=== PATIENT | male | born 1975 | race Caucasian/White ===

== ENCOUNTER 2019-11-03 06:27 | Day surgery (SDC) | payer MEDICARE ==
[~2019-11-03] VITALS: Ht 175.3 cm; Wt 112.5 kg
[2019-11-03 07:10] LABS: ANION GAP 19.5 mmol/L (8-16); CALCIUM 9.5 mg/dL (8.5-10.1); CARBON DIOXIDE 26.4 mmol/L (21.0-32.0); CREATININE - SERUM 9.1 mg/dL (0.6-1.3); POTASSIUM - SERUM 4.9 mmol/L (3.5-5.1)
[2019-11-03 07:21] LABS: BASOPHILS 0.2 % (0-2); EOSINOPHILS 2.8 % (0-7); HEMATOCRIT 35.8 % (42.0-54.0); HEMOGLOBIN 11.7 g/dL (13.5-17.5); IMMATURE GRANULOCYTES 0.2 % (0-5); LYMPHOCYTES 27.9 % (15-50); MCH 32.1 pg (26.0-34.0); MCHC 32.7 g/dL (31.0-37.0); MCV 98.4 fL (80.0-100.0); MEAN PLATELET VOLUME 10.5 fL (7.4-10.4); MONOCYTES 6.8 % (2-11); NEUTROPHILS 62.1 % (40-80); PLATELET COUNT 126 10x3/uL (130-400); RBC 3.64 10x6/uL (4.20-6.10); RDW 14.6 % (11.5-14.5); WBC 4.7 10x3/uL (4.8-10.8)
[2019-11-03 07:45] LABS: INR 1.09 (0.85-1.17); PROTIME 14.1 SECONDS (11.6-15.0)
[2019-11-03] MEDS ORDERED: METOPROLOL TART50 MG PO (08:03)
[2019-11-03] MEDS ORDERED: NORVASC5 MG PO (08:03)
[2019-11-03] MEDS ORDERED: MULTAQ400 MG PO (08:03)
[2019-11-03] MEDS ORDERED: KAYEXALATE15 G/60 ML PO (08:04)
[2019-11-03] MEDS ORDERED: RENVELA800 MG PO (08:05)
[2019-11-03 08:06] VITALS: BP 163/84; Ht 175.3 cm; Wt 112.5 kg
[2019-11-03] MEDS ORDERED: ULTRAM50 MG PO (10:10)
--- NOTE | 2019-11-03 11:49 | NUR ---
PERITONEAL CATHETER REF.#[id number]
--- NOTE | 2019-11-04 09:18 | OP ---
PATIENT NAME: ILEANA BALTAZAR JR MEDICAL RECORD: [id number] :75 LOCATION:[facility] ADMISSION DATE: SURGEON: MIHIR WYNNE MD DATE OF OPERATION: 11/03/2019 PREOPERATIVE DIAGNOSES: End-stage renal disease and dependence on renal dialysis. POSTOPERATIVE DIAGNOSES: End-stage renal disease and dependence on renal dialysis. REFERRING PHYSICIAN: Dr. Padron in [place]. OPERATION PERFORMED: Laparoscopic implantation of peritoneal dialysis catheter and laparoscopic omentopexy. SURGEON: Mihir Wynne MD ANESTHESIA: General endotracheal per CHAINSTITCH BINDER. PREOPERATIVE NOTE: Mr. Baltazar is a 44-year-old white male patient with end-stage renal disease, who wishes to resume peritoneal dialysis. He is obese with a very pendulous abdomen and on my initial physical examination, I detected a previously asymptomatic and undiagnosed right inguinal hernia. He is brought to the hospital today for laparoscopic implantation of a PD catheter and if confirmed, repair of hernia. DESCRIPTION OF PROCEDURE: Under general endotracheal anesthesia, the patient was placed in supine position and a Foss catheter inserted. The abdomen was then prepped and draped in a sterile manner. I used a stencil then to measure up from the symphysis pubis and decided on a site for the primary incision for the catheter. This was to the left of the midline and I marked an exit site further to the left at about the level of the umbilicus. I then accessed the peritoneal cavity with a 5-mm port through a small incision in the left upper quadrant. Initially inserted with a 0-degree 5-mm scope. This was changed to a 30-degree angle. Pneumoperitoneum was established with carbon dioxide and a second 5-mm port was placed in the left lower quadrant. The patient had a generous omentum in the pelvis and I felt that an omentopexy would be advisable and this was performed by using a Victoriano-Jerome suture passer through a small incision in the right upper quadrant to tack a generous flap of omentum, pulled up from the pelvis to the anterior abdominal wall with 0 Vicryl. I then made the incision on the left paramedian area and carried it down to the rectus sheath where I infiltrated then the rectus sheath and muscle with 0.25% Marcaine with epinephrine in hopes of achieving better hemostasis. A pursestring suture of 0 Vicryl was placed and a trocar introducer passed then through the anterior rectus sheath at an angle and observed with the laparoscope. This was passed within the rectus sheath and preperitoneal space considerably distally before penetrating the peritoneum above the symphysis pubis. A [facility]'s classic Flex-Neck adult large coil catheter was then inserted with little difficulty. The deeper cuff was inserted into the rectus muscle and the pursestring suture of 0 Vicryl was tied. The catheter was flushed with saline to be certain that the tie was not too tight, and the catheter was then OPERATIVE REPORT [id number] ILEANA BALTAZAR JR placed in a subcutaneous tunnel bringing it out through the previously identified exit site and leaving the superficial cuff 3 or 4 cm from the exit site. The catheter was connected to a liter of normal saline, which was then allowed to run into the abdomen and then the bag was placed on the floor and the fluid was allowed to siphon out and flow was brisk with good return. The catheter was then connected to a transverse set and capped. The laparoscopic instruments and ports were removed, and the wounds infiltrated with 0.25% Marcaine without epinephrine, and wound closure performed with interrupted inverted 3-0 Vicryl. Skin closure of the longer left paramedian incision was done with a running 4-0 Stratafix. The incisions were sealed and further closed with Dermabond glue and dressed with Maxorb Ag, Tegaderm, and Cavilon skin prep. The catheter at the exit site was dressed with a chlorhexidine Biopatch and a 4 x 4 Medipore adhesive border dressing. The patient's Foss catheter was removed. He was then awakened and extubated and taken to the recovery room in stable condition. Blood loss during the operation about 5 cc, was unreplaced. Sponges, instruments, and needles were all accounted for. No surgical specimen was submitted for histopathology. PLAN: The patient will go home today from the outpatient department and an appointment scheduled for him to return to see me in my office in about 2 weeks. He is not to shower or get the dressings or incisions wet. He should have his catheter flushed next week and probably after I see him in 2 or 3 weeks from now, he should be able to begin dialysis training. TRANSINT:[id number] Voice Confirmation ID: [id number] DOCUMENT ID: [id number] CC: [facility] Blackwell MD at 0918 CC: DIALYSIS RU and ANTHONY PADRON [phone] DICTATION DATE: 11/03/19 1023 LESSON INSTRUCTOR: 11/03/19 1408 DEP SD 11/03/19 [id number] [place] [address]
== END 2019-11-03 12:06 | disposition home or self-care (01) ==
LOC: D.OPS 06:27
PROVIDERS: Surgery; ATTEND Internal Medicine Nephrology
DX: N18.6 End stage renal disease (principal); Z99.2 Dependence on renal dialysis; K40.90 Unilateral inguinal hernia, without obstruction or gangrene, not specified as recurrent; E66.09 Other obesity due to excess calories; E03.9 Hypothyroidism, unspecified; I12.0 Hypertensive chronic kidney disease with stage 5 chronic kidney disease or end stage renal disease

== ENCOUNTER 2021-02-01 16:15 | Inpatient (IN) | payer MEDICARE ==
[~2021-02-01] VITALS: Ht 175.3 cm; Wt 103.8 kg
--- NOTE | ~2021-02-01 | HEMODYNAMI ---
PATIENT:ILEANA BALTAZAR JR MEDICAL RECORD: [id number] : 75 LOCATION:[facility] D230 ADMISSION DATE: 02/01/21 Generatedon:117:53 Patient name: ILEANA BALTAZAR Patient #: [id number] SSN: : [id number] Date of study: 02/05/2021 Page: Of Hemodynamic Procedure Report Patient Data Patient Demographics First Name: ILEANA Gender: Male Last Name: GIOVANNY Suffix: [facility] Initial: Ge : 1975 Patient #: [id number] Age: 46 year(s) Race: Unknown Additional ID: [id number] Contact details [address]: [address] [place] [id number] State: [place] City: [place] Zip code: [address] Past Medical History Allergies Allergen Reaction Date Comments Reported Penicillins 02/05/2021 Other allergy 02/05/2021 flu and pneumonia vaccines Admission Admission Data Admission Date: 02/01/2021 Admission Time: 23:01 Room #: [facility] Procedure Procedure Types Cath Procedure Peripheral Cath Diagnostic Procedure Venography Extremity Left Upper Ext. Venagram Procedure Description Procedure Date Procedure Date: 02/05/2021 Procedure Start Time: 15:28 Procedure Staff Name Function Ramiro Davis MD Performing Physician Melanie Kendrick RT Clinical Research Monitor Madeleine Duron RN Nurse Lesli Gordon RN Nurse SHOAIB YO RT Scrub Procedure Data Cath Procedure Fluoroscopy Diagnostic fluoroscopy Total fluoroscopy Time: time: 24.7 min 24.7 min Diagnostic fluoroscopy Total fluoroscopy dose: dose: 3398 mGy 3398 mGy Contrast Material Contrast Material Type Amount (ml) Isovue 300 120 Procedure Medications Medication Administration Route Dosage Lidocaine 1% added to field 20 Heparin Flush Bag added to field 2 bags (1000units/500ml NS) Benadryl I.V. 50 mg Fentanyl I.V. 25 mcg Fentanyl I.V. 25 mcg Fentanyl I.V. 50 mcg Heparin Bolus I.V. 5000 units Fentanyl I.V. 50 mcg Fentanyl I.V. 50 mcg Versed I.V. 1 mg Fentanyl I.V. 50 mcg Versed I.V. 1 mg Hemodynamics Rest Heart Rate: 61 (bpm) Snapshots Pre Cath Intra NCS Post Cath Vital Signs Time Heart Resp SPO2 etCO2 NIBP (mmHg) Rhythm Pain Sedation Rate (ipm) (%) (mmHg) Status Level (bpm) 15:16:12 61 24 92 27.7 140/96(116) NSR 0 (11) 10(A) , No pain 15:21:11 60 20 97 28.4 Measuring NSR 0 (11) 10(A) , No pain 15:22:35 61 20 96 28.4 Time NSR 0 (11) 10(A) Exceeded , No pain 15:26:53 59 20 95 28.4 132/77(105) NSR 0 (11) 10(A) , No pain 15:31:05 61 22 97 27 122/89(108) NSR 0 (11) 10(A) , No pain 15:35:54 63 19 94 20.9 142/68(118) NSR 0 (11) 8(A) , No pain 15:40:53 59 16 96 28.5 Measuring NSR 0 (11) 8(A) , No pain 15:40:57 59 16 96 28.5 139/113(132) NSR 0 (11) 8(A) , No pain 15:45:56 56 15 97 31.5 Measuring NSR 0 (11) 8(A) , No pain 15:47:18 58 17 96 27.7 Time NSR 0 (11) 8(A) Exceeded , No pain 15:50:39 59 19 98 29.9 No Cuff NSR 0 (11) 8(A) , No pain 15:52:17 58 16 98 32.2 146/61(139) NSR 0 (11) 8(A) , No pain 15:57:16 57 19 97 29.9 Measuring NSR 0 (11) 8(A) , No pain 15:58:40 55 14 97 32.9 Time NSR 0 (11) 8(A) Exceeded , No pain 16:00:14 57 15 98 31.4 104/84(101) NSR 0 (11) 8(A) , No pain 16:04:12 53 15 100 15.7 116/97(108) NSR 0 (11) 8(A) , No pain 16:08:24 54 16 98 30.7 128/65(81) NSR 0 (11) 8(A) , No pain 16:13:23 57 16 100 29.9 Measuring NSR 0 (11) 8(A) , No pain 16:14:47 54 18 99 29.9 Time NSR 0 (11) 8(A) Exceeded , No pain 16:16:17 55 18 100 29.9 105/60(78) NSR 0 (11) 8(A) , No pain 16:20:20 53 17 99 28.4 104/73(89) NSR 0 (11) 8(A) , No pain 16:25:19 54 17 100 17.9 124/82(105) NSR 0 (11) 8(A) , No pain 16:30:19 53 18 98 20.9 Measuring NSR 0 (11) 8(A) , No pain 16:31:43 53 16 99 19.4 Time NSR 0 (11) 8(A) Exceeded , No pain 16:34:35 54 19 100 23.2 130/91(123) NSR 0 (11) 8(A) , No pain 16:38:32 52 16 98 25.4 100/74(93) NSR 0 (11) 8(A) , No pain 16:43:23 54 18 96 30.7 95/71(85) NSR 0 (11) 8(A) , No pain 16:48:22 52 13 97 29.2 Measuring NSR 0 (11) 8(A) , No pain 16:49:30 52 13 99 18.7 Out of range NSR 0 (11) 8(A) , No pain 16:52:44 52 13 98 17.9 Time NSR 0 (11) 8(A) Exceeded , No pain 16:56:25 58 17 99 Time NSR 0 (11) 8(A) Exceeded , No pain 17:01:25 55 11 98 33.7 Measuring NSR 0 (11) 8(A) , No pain 17:01:30 55 11 99 33.7 Time NSR 0 (11) 8(A) Exceeded , No pain 17:04:39 57 13 99 29.9 146/129(143) NSR 0 (11) 8(A) , No pain 17:07:58 55 15 100 29.9 Time NSR 0 (11) 8(A) Exceeded , No pain 17:11:55 57 13 99 26.9 Time NSR 0 (11) 8(A) Exceeded , No pain 17:16:15 54 16 98 20.9 Disturbed NSR 0 (11) 8(A) , No pain 17:17:39 56 19 97 27.7 135/73(80) NSR 0 (11) 8(A) , No pain 17:21:39 53 16 99 25.4 No Cuff NSR 0 (11) 8(A) , No pain 17:23:36 54 16 98 25.4 161/92(122) NSR 0 (11) 8(A) , No pain 17:28:35 54 15 97 0 Measuring NSR 0 (11) 8(A) , No pain 17:29:59 53 15 98 11.2 Time NSR 0 (11) 8(A) Exceeded , No pain 17:34:07 56 16 99 29.9 129/62(115) NSR 0 (11) 8(A) , No pain 17:38:16 54 16 98 15.7 109/62(100) NSR 0 (11) 8(A) , No pain 17:42:12 55 17 99 20.2 120/96(113) NSR 0 (11) 8(A) , No pain 17:47:11 55 13 100 31.4 Measuring NSR 0 (11) 8(A) , No pain 17:48:29 58 17 99 31.4 Out of range NSR 0 (11) 8(A) , No pain 17:53:28 56 16 98 19.4 Measuring NSR 0 (11) 8(A) , No pain Medications Time Medication Route Dose Verified Delivered Reason Notes Effec tiveness by by 15:25:22 Lidocaine 1% added 20ml Ramiro Rubio used for to vial Susan Davis MD procedure field SHEPPARD 15:25:36 Heparin Flush added 2 Ramiro Rubio used for Bag to bags Susan Davis MD procedure (1000units/500ml field SHEPPARD NS) 15:31:26 Benadryl I.V. 50 mg Ramiro Ballesteros Per Evan Davis RN physician 15:32:30 Fentanyl I.V. 25 Ramiro Lesli Per mcg Evan Davis RN, MD 15:56:10 Fentanyl I.V. 25 Ramiro Lesli Per mcg Evan Davis RN, MD 16:15:03 Fentanyl I.V. 50 Ramiro Lesli Per mcg Evan Davis RN, MD 16:42:19 Heparin Bolus I.V. 5000 Ramiro Lesli units Evan Davis RN, MD 16:43:56 Fentanyl I.V. 50 Ramiro Lesli Per mcg Evan Davis RN, MD 16:57:26 Fentanyl I.V. 50 Ramiro Lesli Per mcg Evan Davis RN, MD 17:04:59 Versed I.V. 1 mg Ramiro Buchananody Per Evan Davis RN, MD 17:22:58 Fentanyl I.V. 50 Ramiro Lesli Per mcg Evan Davis RN, MD 17:23:05 Versed I.V. 1 mg Evan Hahn RN, MD Procedure Log Time Note 14:32:44 Use device set IR Diagnostic 14:41:48 Tegaderm 4 x 4 (1626W) opened to sterile field. 14:41:49 Sterile Angiographic Pack opened to sterile field. 14:41:50 Bag Decanter (2002S) opened to sterile field. 14:41:59 DOUBLE ENDED GUIEDWIRE DOC 145CM (J13720) opened to sterile field. 14:42:10 Micropuncture VSI 4FR kit opened to sterile field. 14:58:30 Time tracking: Regular hours (M-F 7:00 - 5:00) 15:08:37 Baseline sample Acquired. 15:15:17 Vital chart was started 15:19:57 Plan of Care:Hemodynamics will remain stable., Cardiac rhythm will remain stable., Comfort level will be maintained., Respiratory function will remain adequate., Patient/ family verbilizes understanding of procedure., Procedure tolerated without complication., Recovers from procedure without complications.. 15:20:03 H&P Date Dictated: 02/05/2021 Within 30 days and on chart.. 15:20:05 Pre-procedure instructions explained to patient. 15:20:05 Pre-op teaching completed and patient verbalized understanding. 15:20:07 Family unavailable. 15:20:11 Patient NPO since Lunch. 15:20:26 Patient allergic to Penicillins 15:21:43 Patient allergic to Other allergyflu and pneumonia vaccines 15:22:00 Is the patient allergic to Iodine/contrast media? No. 15:22:04 Is patient on blood thinner?Yes 15:22:21 Patient diabetic? No. 15:22:23 - 15:22:24 ----Pre-sedation anethsthesia assessment.---- 15:22:29 Previous problem with sedation/anesthesia? No ? 15:22:31 Snore? Yes 15:22:33 Sleep apnea? Yes 15:22:35 Deviated septum? No 15:22:37 Opens mouth fully? Yes 15:22:38 Sticks out tongue? Yes 15:22:48 Airway obstruction? Yes heart disease 15:22:52 Dentures? Yes ? 15:22:53 - 15:22:59 Right groin area was prepped with chlora-prep and draped in sterile fashion 15:23:23 Alarms reviewed by Marge Levine 15:23:33 - 15:23:47 5) <15 or on dialysis Very severe, or end stage kidney failure. 15:23:53 Fire Safety Assessment: A--An alcohol-based skin anteseptic being used preoperatively., C--Open oxygen or nitrous oxide is being used. 15:25:22 Lidocaine 1% 20ml vial added to field was administered by Ramiro Davis MD; used for procedure; Verbal order read back and verified. 15:25:36 Heparin Flush Bag (1000units/500ml NS) 2 bags added to field was administered by Ramiro Davis MD; used for procedure; Verbal order read back and verified. 15:: Physician arrived 15::28 --------ALL STOP TIME OUT------ 15::29 Final Timeout: patient, procedure, and site verified with staff and physician. All members of the team are in agreement. 15::06 Procedure started. 15:28:06 Full Disclosure recording started 15:28:13 Local anesthetic to right femoral vein with Lidocaine 1% by Ramiro Davis MD.INITIAL ACCESS ONLY 15:31:26 Benadryl 50 mg I.V. was administered by Lesli Gordon RN; Per physician ; Verbal order read back and verified. 15:32:30 Fentanyl 25 mcg I.V. was administered by Lesli Gordon RN; Per physician; Verbal order read back and verified. 15:37:51 AMPLATZ Super Stiff 75cm wire ([id number]) opened to sterile field. 15:38:04 GLIDE CATHETER 5FR ANGLED 65cm (CG507) opened to sterile field. 15:38:27 SHEATH 6FR Higdon (RQI272) opened to sterile field. 15:38:28 GLIDE WIRE ANGLE 260cm (GH2283) opened to sterile field. 15:40:34 SHEATH DESTINATION 6FR X 65CM (RSP01) opened to sterile field. 15:40:35 MCKEON 260 wire (R46823) opened to sterile field. 15:40:36 TORQUE DEVICE PLASTIC .038 ( TD01) opened to sterile field. 15:43:05 GLIDE CATHETER 5FR ANGLED 100cm (CG508) opened to sterile field. 15:48:25 ROADRUNNER .035 260 glide wire (M14449) opened to sterile field. 15:56:10 Fentanyl 25 mcg I.V. was administered by Lesli Gordon RN; Per physician; Verbal order read back and verified. 16:07:49 SHEATH 7FR Brite-Tip 23cm (171736S) opened to sterile field. 16:15:03 Fentanyl 50 mcg I.V. was administered by Lesli Gordon RN; Per physician; Verbal order read back and verified. 16:18:39 SNARE GOOSENECK 20MM LOOP 120C opened to sterile field. 16:33:28 CXI Catheter 90cm (B03019) opened to sterile field. 16:35:31 CXI SUPPORT .035 135 CM STR catheter (O09917) opened to sterile field. 16:42:19 Heparin Bolus 5000 units I.V. was administered by Lesli Gordon RN; ; Verbal order read back and verified. 16:43:56 Fentanyl 50 mcg I.V. was administered by Lesli Gordon RN; Per physician; Verbal order read back and verified. 16:45:46 SHEATH 7FR Destination (RSR04) opened to sterile field. 16:47:47 INFLATOR BasixTOUCH (ZQ1040) opened to sterile field. 16:49:43 Inflate balloon Inflation number: 1 A Evercross 6 x 8 x 135 Balloon ([id number]) was prepped and advanced across the Undefined1 , then inflated . 16:55:10 Inflate balloon Inflation number: 2 A Evercross 8 x 4 x 135 Balloon ([id number]) was prepped and advanced across the Undefined1 , then inflated . 16:57:26 Fentanyl 50 mcg I.V. was administered by Lesli Gordon RN; Per physician; Verbal order read back and verified. 16:59:40 Inflate balloon Inflation number: 3 A EVERCROSS 10 X 60 X 135 BALLOOON ([id number]) was prepped and advanced across the Undefined1 , then inflated. 17:04:59 Versed 1 mg I.V. was administered by Lesli Gordon RN; Per physician; Verbal order read back and verified. 17:09:29 Inflate balloon Inflation number: 4 A ATLAS 12 x 4 x 75CM balloon ([id number]) was prepped and advanced across the Undefined1 , then inflated . 17:15:46 Vital chart was stopped 17:15:53 Vital chart was started 17:15:57 Vital chart was stopped 17:16:28 Vital chart was started 17:22:21 St Deni 10FR 23CM sheath opened to sterile field. 17:22:58 Fentanyl 50 mcg I.V. was administered by Lesli Gordon RN; Per physician; Verbal order read back and verified. 17:23:05 Versed 1 mg I.V. was administered by Lesli Gordon RN; Per physician; Verbal order read back and verified. 17:35:50 a 12x40 lutonix balloon was used to dilate 17:43:19 Procedure ended.(Physican Out) 17:44:06 Fluoroscopy time 24.70 minutes. 17:44:13 Fluoroscopy dose: 3398 mGy 17:44:13 Flurop Dose total: 3398 17:49:53 Contrast amount:Isovue 300 120ml. 17:49:55 Procedure and supply charges have been captured, reviewed, submitted an d are correct. 17:53:05 Report given to ICU. 17:53:45 Vital chart was stopped Intervention Summary Intervention Notes Time ActionType Lesion and Equipment Used Action# Pressure Duration Attributes 16:49:43 Inflate Undefined1 Evercross 6 x 8 1 0 00:00 balloon x 135 Balloon ([id number]) 16:55:10 Inflate Undefined1 Evercross 8 x 4 2 0 00:00 balloon x 135 Balloon ([id number]) 16:59:40 Inflate Undefined1 EVERCROSS 10 X 3 0 00:00 balloon 60 X 135 BALLOOON ([id number]) 17:09:29 Inflate Undefined1 ATLAS 12 x 4 x 4 0 00:00 balloon 75CM balloon ([id number]) Device Usage Item Name Manufacture Quantity Catalog Number Hospital Part Current M inimal Lot# / Charge Number Stock Stock Serial# Code Tegaderm 4 x 4 3M 1 1626W [id number] [id number] 5 (1626W) Sterile Cardinal 1 [id number] 871622 146552 5 Angiographic Health Pack Bag Decanter Microtek 1 956258 32512 191125 5 () Medical Inc. DOUBLE ENDED Cook Medical 1 F54646 573759 379889 1 GUIEDWIRE DOC 145CM (V00919) Micropuncture VSI VASCULAR 1 7266V 270907 406759 5 VSI 4FR kit SOLUTIONS AMPLATZ Super [place] 1 [id number] 625818 530874 261550 5 Stiff 75cm wire Scientific ([id number]) GLIDE CATHETER Terumo 1 CG507 777366 227638 5 5FR ANGLED 65cm (CG507) SHEATH 6FR Terumo 1 IEO507 066197 238566 371998 4 0 Higdon (MLS321) GLIDE WIRE Terumo 1 FM3245 541693 761818 982374 5 ANGLE 260cm (NV2633) SHEATH Terumo 1 RSP01 517084 48674 290652 1 DESTINATION 6FR X 65CM (RSP01) MCKEON 260 wire Cook Medical 1 H25725 577755 810698 402570 5 (F19030) TORQUE DEVICE [place] 1 TD01 133022 367457 576580 5 PLASTIC .038 ( Scientific TD01) GLIDE CATHETER Terumo 1 CG508 616569 00366 316067 4 5FR ANGLED 100cm (CG508) ROADRUNNER .035 Cook Medical 1 I82452 222032 729702 674482 5 260 glide wire (S52464) SHEATH 7FR Cardinal 1 [id number] 729828 0343990 0 Brite-Tip 23cm Health (908271E) SNARE GOOSENECK Medtronic 1 QS6112 325232 846735 881442 5 20MM LOOP 120C CXI Catheter Cook Medical 1 G99710 840970 375516 681820 5 90cm (R20425) CXI SUPPORT Cook Medical 1 B62384 804661 028000 394987 5 .035 135 CM STR catheter (B73968) SHEATH 7FR Terumo 1 RSR04 413968 495767 401836 5 Destination (RSR04) INFLATOR Merit 1 BT6149 838064 780943 170259 5 Classiqs (FO2886) Evercross 6 x 8 Medtronic 1 [id number] 855955 782475 449568 5 x 135 Balloon ([id number]) Evercross 8 x 4 Medtronic 1 [id number] 583752 668982 609549 5 x 135 Balloon ([id number]) EVERCROSS 10 X Medtronic 1 [id number] 967520 074834 1 60 X 135 BALLOOON ([id number]) ATLAS 12 x 4 x Bard 1 FQ69613 959366 332273 5 75CM balloon (UX54434) St Deni 10FR St Deni 1 529881 154756 738516 5 23CM sheath Signature Audit [place] Stage Time Signature Unsigned Intra-Procedure 02/05/2021 Melanie Kendrick 5:53:43 PM RT(R) [facility] [address] [place] [address]
[~2021-02-01 16:15] MED LIST: KAYEXALATE15 G/60 ML PO; METOPROLOL TART50 MG PO; MULTAQ400 MG PO; NORVASC5 MG PO; RENVELA800 MG PO; ULTRAM50 MG PO
[2021-02-01 17:02] LABS: BASOPHILS 0.8 % (0-2); HEMATOCRIT 30.5 % (42.0-54.0); HEMOGLOBIN 10.2 g/dL (13.5-17.5); LYMPHOCYTES 16.4 % (15-50); MCH 32.6 pg (26.0-34.0); MCHC 33.5 g/dL (31.0-37.0); MCV 97.5 fL (80.0-100.0); MEAN PLATELET VOLUME 8.1 fL (7.4-10.4); MONOCYTES 6.4 % (2-11); NEUTROPHILS 73.4 % (40-80); RBC 3.13 10x6/uL (4.20-6.10); RDW 15.3 % (11.5-14.5); WBC 4.5 10x3/uL (4.8-10.8)
[2021-02-01 17:09] LABS: INR 1.13 (0.85-1.17); PROTIME 13.5 SECONDS (11.6-15.0)
[2021-02-01 17:10] LABS: ANION GAP 20.7 mmol/L (8-16); CARBON DIOXIDE 23.9 mmol/L (21.0-32.0); CREATININE - SERUM 12.1 mg/dL (0.6-1.3); POTASSIUM - SERUM 5.6 mmol/L (3.5-5.1)
[2021-02-01 17:11] LABS: PLATELET COUNT 161 10x3/uL (130-400)
[2021-02-01 17:16] LABS: ALBUMIN 3.6 g/dL (3.4-5.0); BILIRUBIN - TOTAL 0.43 mg/dL (0.2-1.3); MAGNESIUM - SERUM 2.4 mg/dL (1.8-2.4)
[2021-02-01 18:24] LABS: PRO BNP 11142 pg/mL (0-125); TROPONIN-I < 0.017 ng/mL (0.000-0.060)
--- NOTE | 2021-02-01 19:20 | NUR ---
PT REPORT GIVEN TO MAIA HARDY
[2021-02-01 19:33] VITALS: BP 172/87
[2021-02-01 22:25] VITALS: BP 190/90
--- NOTE | 2021-02-01 22:30 | NUR ---
PT STATES HE IS HAVING MORE DIFFICULTY BREATHING AND O2 SAT IS 90% ON 4LPM VIA NC. CONTACTED DR. CARRASQUILLO. ORDERS OBTAINED TO TRITRATE NITRO DRIP AND BIPAP.
[2021-02-01 23:30] VITALS: BP 180/91
[2021-02-02] VITALS (21 sets, daily range): BP systolic 114–188; BP diastolic 63–95
[2021-02-02 07:28] LABS: BASOPHILS 0.9 % (0-2); EOSINOPHILS 1.7 % (0-7); HEMATOCRIT 29.9 % (42.0-54.0); HEMOGLOBIN 10.1 g/dL (13.5-17.5); LYMPHOCYTES 13.4 % (15-50); MCH 32.8 pg (26.0-34.0); MCHC 33.8 g/dL (31.0-37.0); MEAN PLATELET VOLUME 7.9 fL (7.4-10.4); MONOCYTES 6.2 % (2-11); NEUTROPHILS 77.8 % (40-80); PLATELET COUNT 149 10x3/uL (130-400); RBC 3.08 10x6/uL (4.20-6.10); RDW 14.7 % (11.5-14.5); WBC 4.4 10x3/uL (4.8-10.8)
[2021-02-02 07:42] LABS: ALBUMIN 3.3 g/dL (3.4-5.0); BILIRUBIN - TOTAL 0.4 mg/dL (0.2-1.3); CALCIUM 9.9 mg/dL (8.5-10.1); CARBON DIOXIDE 22.9 mmol/L (21.0-32.0); CREATININE - SERUM 13.4 mg/dL (0.6-1.3); PROTEIN - SERUM 6.5 g/dL (6.4-8.2)
[2021-02-02 07:58] LABS: ANION GAP 23.8 mmol/L (8-16); POTASSIUM - SERUM 6.7 mmol/L (3.5-5.1)
--- NOTE | 2021-02-02 09:30 | NUR ---
DR. MENDENHALL HERE TO INSTERT VENOUS TRIALYSIS CATHETER.
--- NOTE | 2021-02-02 09:35 | NUR ---
MEDICATION FOR POTASSIUM LEVEL OF 6.7 GIVEN.
--- NOTE | 2021-02-02 10:20 | NUR ---
TRIALYSIS CATHETER PLACED TO LEFT GROIN BY DR. MENDENHALL. OK TO USE PER DR. MENDENHALL. DIALYSIS NOTIFIED.
--- NOTE | 2021-02-02 12:00 | NUR ---
BP 167/82. NITROGLYCERINE DRIP INCREASED TO 45MCG/MIN.
--- NOTE | 2021-02-02 13:15 | NUR ---
BP TRENDING DOWN DURING HEMODIALYSIS. NITROGLYCERINE TITRATED DOWN TO 30MCG/MIN.
--- NOTE | 2021-02-02 15:45 | NUR ---
SPO2 TRENDING IN THE UPPER 80S. O2 ON AT 2 L/M, INCREASED SP02 TO 96/97.
--- NOTE | 2021-02-02 16:25 | NUR ---
ON BED OVERTON. EXPELLED FORMED STOOL.
--- NOTE | 2021-02-02 17:40 | NUR ---
REPORT TO ANTONY PERALES, ICU.
[2021-02-02] MEDS ORDERED: ISOSORBIDE MONO30 M1 PO (18:15)
[2021-02-02] MEDS ORDERED: PLAVIX75 MG PO (18:15)
--- NOTE | 2021-02-02 18:15 | NUR ---
RECIEVED PT FROM THE ER WITH ER STAFF. PT PLACED ON ICU MONITORS. LT FEMORAL LINES DRESSED AND MEDS REVIEWED. WILL CONTINUE TO MONITOR.
[2021-02-02] MEDS ORDERED: SENSIPAR60 MG PO (18:16)
[2021-02-02] MEDS ORDERED: ROCALTROL0.5 MCG PO (18:16)
[2021-02-02] MEDS ORDERED: ASPIRIN81 MG PO (18:17)
[2021-02-03] VITALS (75 sets, daily range): BP systolic 119–182; BP diastolic 78–99; Ht 175.3 cm; Wt 103.8 kg
[2021-02-03 04:39] LABS: BASOPHILS 1.1 % (0-2); EOSINOPHILS 2.6 % (0-7); HEMATOCRIT 26.6 % (42.0-54.0); HEMOGLOBIN 8.8 g/dL (13.5-17.5); LYMPHOCYTES 17.4 % (15-50); MCH 32.2 pg (26.0-34.0); MCHC 33.3 g/dL (31.0-37.0); MCV 96.7 fL (80.0-100.0); MEAN PLATELET VOLUME 8.1 fL (7.4-10.4); MONOCYTES 9.3 % (2-11); NEUTROPHILS 69.6 % (40-80); PLATELET COUNT 126 10x3/uL (130-400); RBC 2.75 10x6/uL (4.20-6.10); RDW 14.5 % (11.5-14.5)
[2021-02-03 04:45] LABS: WBC 3.1 10x3/uL (4.8-10.8)
[2021-02-03 04:56] LABS: ANION GAP 18.6 mmol/L (8-16); CALCIUM 9.2 mg/dL (8.5-10.1); CARBON DIOXIDE 26.7 mmol/L (21.0-32.0); CREATININE - SERUM 12.1 mg/dL (0.6-1.3)
[2021-02-03 05:12] LABS: POTASSIUM - SERUM 6.3 mmol/L (3.5-5.1)
--- NOTE | 2021-02-03 07:10 | NUR ---
REPORT RECEIVED. DR WONG IN UNIT. ASKED TO GO ON AND GIVE PROCARDIA EARLY. WILL ATTEMPT TO WEAN NITRO DRIP. PT HAS LEFT GROIN TRIALYSIS AND A PIV IN HIS LEFT CHEST. HE IS A RIGHT ARM RESERVE. FISTULA CLOTTED IN RIGHT ARM. ASSESSMENT DONE. REFER TO FLOWSHEET.
--- NOTE | 2021-02-03 09:30 | NUR ---
PT BEING HOOKED UP FOR DIALYSIS.
--- NOTE | 2021-02-03 11:55 | NUR ---
PT HR UP TO 123 FROM RUNNING IN THE 50S WHILE ON DIALYSIS. SOME PVS SEEN. 12 LEAD EKG OBTAINED. TO CONSULT CARDIOLOGY.
--- NOTE | 2021-02-03 12:07 | NUR ---
SPOKE WITH JANUSZ DALLAS, FOR CARDIOLOGY CONSULT. ASKED TO GET ANOTHER EKG WHEN DIALYSIS IS COMPLETED AND THAT SHE WOULD SEE PT THIS AFTERNOON.
--- NOTE | 2021-02-03 12:22 | NUR ---
HR DOWN TO 64. P WAVES PRESENT WITH PVCS.
[2021-02-04] VITALS (55 sets, daily range): BP systolic 145–190; BP diastolic 77–116
[2021-02-04 04:47] LABS: BASOPHILS 0.7 % (0-2); HEMATOCRIT 26.8 % (42.0-54.0); LYMPHOCYTES 17.8 % (15-50); MCH 32.3 pg (26.0-34.0); MCHC 33.5 g/dL (31.0-37.0); MCV 96.3 fL (80.0-100.0); MEAN PLATELET VOLUME 7.9 fL (7.4-10.4); MONOCYTES 10.7 % (2-11); NEUTROPHILS 67.8 % (40-80); PLATELET COUNT 138 10x3/uL (130-400); RBC 2.78 10x6/uL (4.20-6.10); RDW 14.4 % (11.5-14.5); WBC 3.9 10x3/uL (4.8-10.8)
[2021-02-04 05:10] LABS: ANION GAP 16.2 mmol/L (8-16); CALCIUM 9.5 mg/dL (8.5-10.1); CARBON DIOXIDE 26.9 mmol/L (21.0-32.0); CREATININE - SERUM 10.1 mg/dL (0.6-1.3)
[2021-02-04 05:14] LABS: POTASSIUM - SERUM 5.1 mmol/L (3.5-5.1)
[2021-02-05] VITALS (19 sets, daily range): BP systolic 103–193; BP diastolic 55–104
[2021-02-05 04:48] LABS: EOSINOPHILS 2.2 % (0-7); HEMATOCRIT 27.2 % (42.0-54.0); HEMOGLOBIN 9.3 g/dL (13.5-17.5); LYMPHOCYTES 14.2 % (15-50); MCH 32.6 pg (26.0-34.0); MCHC 34.2 g/dL (31.0-37.0); MCV 95.2 fL (80.0-100.0); MEAN PLATELET VOLUME 7.7 fL (7.4-10.4); MONOCYTES 8.4 % (2-11); NEUTROPHILS 74.2 % (40-80); PLATELET COUNT 122 10x3/uL (130-400); RBC 2.86 10x6/uL (4.20-6.10); RDW 14.5 % (11.5-14.5); WBC 3.8 10x3/uL (4.8-10.8)
[2021-02-05 05:04] LABS: ANION GAP 20.7 mmol/L (8-16); CALCIUM 9.2 mg/dL (8.5-10.1); CARBON DIOXIDE 23.7 mmol/L (21.0-32.0); CREATININE - SERUM 11.8 mg/dL (0.6-1.3)
[2021-02-05 05:27] LABS: POTASSIUM - SERUM 6.4 mmol/L (3.5-5.1)
--- NOTE | 2021-02-05 07:10 | NUR ---
REPORT RECEIVED. PT ALERT AND ORIENTED. ON O2 AT 4L. PIV TO LEFT CHEST. HEMASPLIT TO LEFT GROIN. PT IS RESERVED RIGHT ARM. GETS DIALYSIS MWF. NO COMPLAINTS OR NEEDS AT THIS TIME.
--- NOTE | 2021-02-05 08:04 | NUR ---
Nutrition follow-up: Pt has been NPO for surgery Diet order: Renal with po intake 100%, 25% of last 2 meals More surgery scheduled labs reviewed; K: 6.4 with dialysis again today Wt: 229# Will continue to provide food choices and honor food preferences within diet restrictions. RDN will order Nepro nutritional supplement BID. RDN will follow-up on pts progress toward nutrition goals in 2-3 days.
--- NOTE | 2021-02-05 11:00 | NUR ---
PT DONE WITH DIALYSIS.
--- NOTE | 2021-02-05 19:00 | NUR ---
REPORT GIVEN BY DIAZRN
--- NOTE | 2021-02-05 19:45 | NUR ---
ASSESSMENT COMPLETED. ALERT AND ORIENTED. DIALYSIS WAS PERFORMED TODAY DUE TO THE FACT THAT HIS K+ WAS 6.4. THERE ARE TIMES WHEN BPS ARE ELEVATED. HE HAS PRN MEDS ORDERED WITH PARAMATERS. 4L O2 VIA NS. PT HAS A LEFT UPPER CHEST IV, A FEMORAL HEMOSPLIT AND A RIGHT FISTULA IN RIGHT ARM. USUALLY HAS DIALYSIS MWF IN [place], [place]. THE HOB IS ELEVATED AND HAS TELEMETRY. HE DOES HIS IS WELL WHEN ITS TIME. HE INDEPENDENTLY COUGHS, TURNS AND DEEP BREATHES.
--- NOTE | 2021-02-05 22:00 | NUR ---
PT IS ASLEEP WITH O2 ON. PT HAS NO IV FLUIDS RUNNING AT THIS TIME.
[2021-02-06] VITALS (11 sets, daily range): BP systolic 97–160; BP diastolic 45–89
[2021-02-06 00:03] LABS: SARS-CoV-2 ANTIGEN NEGATIVE- SARS-COV-2 (NEGATIVE)
--- NOTE | 2021-02-06 00:07 | NUR ---
STILL SLEEPING WITHOUT C/O.
[2021-02-06 03:37] LABS: BASOPHILS 1.1 % (0-2); EOSINOPHILS 2.8 % (0-7); HEMATOCRIT 27.4 % (42.0-54.0); HEMOGLOBIN 9.1 g/dL (13.5-17.5); LYMPHOCYTES 13.6 % (15-50); MCHC 33.4 g/dL (31.0-37.0); MCV 95.8 fL (80.0-100.0); MEAN PLATELET VOLUME 8.1 fL (7.4-10.4); MONOCYTES 8.4 % (2-11); NEUTROPHILS 74.1 % (40-80); PLATELET COUNT 122 10x3/uL (130-400); RBC 2.86 10x6/uL (4.20-6.10); RDW 14.1 % (11.5-14.5); WBC 3.8 10x3/uL (4.8-10.8)
[2021-02-06 03:47] LABS: ANION GAP 13.9 mmol/L (8-16); CALCIUM 9.2 mg/dL (8.5-10.1); CARBON DIOXIDE 29.3 mmol/L (21.0-32.0); CREATININE - SERUM 9.9 mg/dL (0.6-1.3)
--- NOTE | 2021-02-06 03:50 | NUR ---
PT HAS BEEN ASLEEP MOST OF THE NIGHT. HE'LL WAKE UP AND THEN GO RIGHT BACK TO SLEEP. HE DOES NOT C/O PAIN. I TOOK HIM A GLASS OF ICE EARLIER IN THE NIGHT. SIDE RAILS UP X2 AND CALL LIGHT IN HIS HAND.
[2021-02-06 04:48] LABS: POTASSIUM - SERUM 6.2 mmol/L (3.5-5.1)
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
--- NOTE | 2021-02-06 06:15 | NUR ---
PT HAS SLEPT MOST OF THE SHIFT. HE HAS NOT C/O OF PAIN. OVER THE COURSE OF THE 12 HOURS HE HAD 2 SMALL GLASSES OF ICE.
--- NOTE | 2021-02-06 19:56 | NUR ---
REPORT RECEIVED. PT A&O, RESTING IN BED. NO S/S OF DISTRESS OBSERVED. RR EVEN & UNLABORED ON 4L. DIALYSIS TODAY; 3L OFF. L GROIN HEMESPLIT SL. IV TO L CHEST SL. DIALYSIS DAYS MTW. R ARM RESERVED FOR R ARM FISTULA. BED LOCKED AND LOWERED, CL IN REACH. ASSESSMENT COMPLETE. WILL CONT POC.
[2021-02-07] VITALS: BP 146/96
--- NOTE | 2021-02-07 00:29 | NUR ---
PT C/O OF NOT FEELING WELL. SAYS HIS STOMACH DOESN'T FEEL WELL AND THAT HE JUST DOESN'T "FEEL RIGHT". PLACED PT ON TELE, ST 131. V/S 149/96, 130, 95%, R 16. WILL CONT POC.
--- NOTE | 2021-02-07 01:19 | NUR ---
TREATED TACHYCARDIA WITH PRN CLONODINE. PTS NOSE WAS BLEEDING FROM DRYING OUT OF 02; ADD HUMIDIFIER TO O2. WILL CONT POC.
[2021-02-07 03:12] VITALS: BP 139/87
[2021-02-07 05:21] LABS: BASOPHILS 0.9 % (0-2); EOSINOPHILS 1.1 % (0-7); HEMATOCRIT 28.2 % (42.0-54.0); HEMOGLOBIN 9.7 g/dL (13.5-17.5); LYMPHOCYTES 10.5 % (15-50); MCH 32.8 pg (26.0-34.0); MCHC 34.6 g/dL (31.0-37.0); MONOCYTES 9.9 % (2-11); NEUTROPHILS 77.6 % (40-80); PLATELET COUNT 123 10x3/uL (130-400); RBC 2.97 10x6/uL (4.20-6.10); RDW 14.1 % (11.5-14.5); WBC 4.5 10x3/uL (4.8-10.8)
[2021-02-07 05:44] LABS: ANION GAP 14.5 mmol/L (8-16); CALCIUM 9.6 mg/dL (8.5-10.1); CARBON DIOXIDE 29.4 mmol/L (21.0-32.0); CREATININE - SERUM 8.1 mg/dL (0.6-1.3)
[2021-02-07 05:53] LABS: POTASSIUM - SERUM 4.9 mmol/L (3.5-5.1)
--- NOTE | 2021-02-07 07:55 | NUR ---
AM ROUNDING DONE WITH PATIENT AROUSING EASILY. ON 4L WITH HUM WATER. LEFT CHEST PIV SEENW ITH SALINE LOCK AND ORANGE CAP. LEFT ABDOMINAL AREA WITH PD CATH SEEN AND DRY DRESSING. LEFT THIGH HEMISPLIT SEEN WITH DRY, INTACT DRESSING. RIGHT UPPER ARM DRESSING SEEN FROM RECENT SURGERY. LEFT ARM DRESSING SEEN, DRY AND INTACT. RESEVER RIGHT ARM. ON HEART MONITOR. PATIENT DENIES ANY NEEDS AT THIS TIME. CALL LIGHT IN USE.
--- NOTE | 2021-02-07 08:06 | NUR ---
PER DR WONG WE NEED TO STOP THE HEPARIN DRIP WHICH WAS STOPPED BUT NO ORDER FOR IT. DONE.
[2021-02-07 09:00] VITALS: BP 141/73
--- NOTE | 2021-02-07 10:08 | NUR ---
AM MEDS WHERE SCANNED AND GIVEN WITH CHLOE WITH DIETARY IN THE ROOM.
[2021-02-07 12:00] VITALS: BP 144/72
--- NOTE | 2021-02-07 12:31 | NUR ---
WORK ORDER PLACED THERE IS WATER ON THE FLOOR FROM THE AC UNIT.
--- NOTE | 2021-02-07 13:02 | NUR ---
Nutrition Reassessment: Pt reports vomiting after breakfast this AM. States that he has been eating well otherwise. Last BM on Sun or Mon but does not feel constipated. HD TTS. Diet: Renal No new wt; last wt: 228.9# (02/03) Labs noted: K+ 4.9, BUN 48, Cre 8.1, GFR 8, Glu 113 Meds noted: Veltassa, Protonix -Nutrition needs, Dx, & goals unchanged since initial assessment. -Encourage PO intake and honor food preferences within diet restrictions. -Offer Nepro with meals. -Monitor wt. -RD will follow up within 3-5 days.
--- NOTE | 2021-02-07 19:30 | NUR ---
PT IN BED, AAO X 4, RESP EVEN AND UNLABORED, NO DISTRESS NOTED, CL IN REACH, SR UP X 2.
[2021-02-07 20:59] VITALS: BP 140/63
[2021-02-08 01:58] VITALS: BP 158/80
[2021-02-08 05:02] VITALS: BP 137/65
--- NOTE | 2021-02-08 07:40 | NUR ---
AM ROUNDING DONE WITH PATIENT STILL HAVING A LITTLE HEARTBURN, STATES THAT IT IS BETTER THAN LAST NIGHT. ON ROOM AIR. LEFT CHEST PIV SALINE LOCK SEEN WITH ORANGE CAP INTACT. OLD LEFT AVF CLOTTED WITH DRY DRESSING. RIGHT AVF WITH WEAK + BRUIT, NO THRILL. LEFT PD CATH SEEN WITH DRY DRESSING. LEFT THIGH HEMISPLIT WITH DRY, INTACT DRESSING. UP AD KINDRA. ON HEART MONITOR SHOWING SB, HR 56. CALL LIGHT IS IN USE.
[2021-02-08 08:06] VITALS: BP 133/64
--- NOTE | 2021-02-08 09:40 | MORECARE ---
CASE MANAGEMENT DISCHARGE SUMMARY PATIENT: ILEANA BALTAZAR UNIT: [id number] ADM DATE: 02/01/21 AGE: 46 : 75 SEX: M ROOM/BED: D[facility] AUTHOR: MICHAELA,DOC PHYSICIAN: REFERRING PHYSICIAN: RONNY CLEARY MD DATE OF SERVICE: 02/08/21 Case Management Discharge Planning Summary DCP REVIEW SUMMARY ANTICIPATED D/C DATE: 02/08/2021 EXPECTED LOS : 7 CASE STATUS: DCP Initiated INITIAL REVIEW: 02/01/2021 INITIAL REVIEWER: Nayan Mohan FINAL DISCHARGE DISPOSITION: : FINAL REVIEWER: FINAL REVIEW DATE: DCP Focus Questions & Answers QUESTION: ANSWER : PATIENT: ILEANA BALTAZAR ENCOUNTER: [id number] MEDICAL RECORD#: [id number] ADMISSION DATE: 02/01/2021 DISCHARGE DATE: ATTENDING MD: : AGE: 46 MARITAL STATUS: M DC PLAN ID: [id number] FACILITY: [facility] PRINTED ON: 02/08/21 9:40 CT All edits/amendments must be made on the electronic document DICTATION DATE: 02/08/21939 TILE EDGER: DM 02/08/21939 RPT#: [id number] DC DATE: STATUS: ADM IN [facility] [address] [place] [address] END OF REPORT
--- NOTE | 2021-02-08 09:51 | MORECARE ---
CASE MANAGEMENT DISCHARGE SUMMARY PATIENT: ILEANA BALTAZAR JR UNIT: [id number] ADM DATE: 02/01/21 AGE: 46 : 75 SEX: M ROOM/BED: D.2137 AUTHOR: RODRIGO JENNINGS PHYSICIAN: REFERRING PHYSICIAN: RONNY CLEARY MD DATE OF SERVICE: 02/08/21 Case Management Discharge Planning Summary COMMENTS ENTERED DATE: 02/08/21 9:41 CT COMMENT TYPE: Discharge Planning REVIEWER: Nayan Mohan CM met with patient to complete DC plan and to evaluate needs. Patient lives independently with his spouse, Jonna Baltazar, . Patient stated that his home is safe and has electricity and running water. Patient stated that the home has 3 steps to enter and he is able to manage the steps without difficulty. Patient stated that he has no problems paying for medications and he fills his medications at [facility] in [place], [place]. Patient stated that his primary care physician is Dr. Pollack in [place], [place]. At discharge, the patient plans to return home and feels this is a safe discharge. CM discussed availability of home health, rehab services, and medical equipment. Patient declined HHS, SNF, IPR, and DME. Patient stated that he has no mobility problems and has family to help should he need care. Patient voiced no other needs at this time and is satisfied with DC plan. Transportation provider at discharge will be with his son. DC IMM delivered, explained, signed by the patient, and placed in chart. Signed form also left with the patient. CM will continue to follow and will assist as needed with dc plans/needs. DCP REVIEW SUMMARY ANTICIPATED D/C DATE: 02/08/2021 EXPECTED LOS : 7 CASE STATUS: DCP Initiated INITIAL REVIEW: 02/01/2021 INITIAL REVIEWER: Nayan Mohan FINAL DISCHARGE DISPOSITION: : FINAL REVIEWER: FINAL REVIEW DATE: DCP Focus Questions & Answers DCP Evaluation QUESTION: ANSWER Patient gives permission to discuss discharge plans with: (name, relationship and number) : spouse, Jonna Baltazar, Patient's ability to cope with chronic illness : d. No chronic illness Patient's current cognitive status: : *Oriented to person, place, situation, time and present Family / Caregiver's ability to cope with chronic illness: : a. Adequate (ability to meet patient's medical needs, ensures patient attends medical appts.) Patient and/or caregiver agree upon recommended discharge plan? : Yes Physical Status: : Independent with ADL's Family / Caregiver's ability to cope with chronic illness: : a. Adequate (ability to meet patient's medical needs, ensures patient attends medical appts.) Functional screen assessment: : Basic needs can adequately be met by self Does the patient have the ability to pay for or attain post discharge needs / services? : Yes Living Arrangements: : Home with Spouse/Significant Other Is there a likelihood that the patient will require additional services to return to the preadmission environment? : No Equipment needed for post hospitalization: : None Baseline cognitive status: : *Oriented to person, place, situation, time and present Patient with capacity for self-care or can be cared for in same environment as prior to hospitalization? : Yes Physical environment modification needed / anticipated for discharge: : No Medication Management: : Patient states can afford medications Medication Management: : Patient states can read and understand medication labels Pharmacy name(s): : [facility] in [place], [place] Does Patient have transportation to get home and to follow-up medical appointments when discharged from the hospital? : Yes Would patient like to participate in any Care Coordination programs (if applicable): : Not applicable Does the patient have electricity at home? : Yes Does the patient have running water in their house? : Yes Equipment in use: : None Mental health screen: : No mental health history DCP Re-evaluation QUESTION: ANSWER Would patient like to participate in any Care Coordination programs (if applicable): : Not applicable PATIENT: ILEANA BALTAZAR ENCOUNTER: [id number] MEDICAL RECORD#: [id number] ADMISSION DATE: 02/01/2021 DISCHARGE DATE: ATTENDING MD: MILDRED: AGE: 46 MARITAL STATUS: M DC PLAN ID: [id number] FACILITY: [facility] PRINTED ON: 02/08/21 9:51 CT All edits/amendments must be made on the electronic document DICTATION DATE: 02/08/21950 [employer] EXECUTIVE DIRECTOR: CEDRIC 02/08/21950 RPT#: [id number] DC DATE: STATUS: ADM IN [facility] [address] [place] [address] END OF REPORT
--- NOTE | 2021-02-08 10:43 | NUR ---
TO DIALYSIS VIA BED.
--- NOTE | 2021-02-08 14:28 | NUR ---
RETURNS FROM DIALYSIS.
--- NOTE | 2021-02-08 14:48 | NUR ---
LEFT HEMISPLIT THIGH DRESSING CHANGED USING STERILE TECHNIQUE. DATED. TOLERATED WELL. HEART MONITOR TURNED IN FOR DISCHARGE. PATIENT IS AWITING HIS RIDE FOR DISCHARGE.
--- NOTE | 2021-02-08 15:06 | NUR ---
VERBAL AND WRITTEN DISCHARGE INSTRUCTIONS GIVEN TO PATIENT AND SON. IV CATH REMOVED FROM LEFT CHEST. PRESSURE HELD IT WANTS TO BLEED EASILY FROM DIALYSIS AND PLAVIX.
== END 2021-02-08 16:08 | disposition home or self-care (01) | DRG 252 ==
LOC: D.ER 16:15 → D.EDHOLD 19:10 → OBSVTIME 19:10 → D.EDHOLD 23:01 → D.ICU 23:01 → D.M2 02-06 15:32
PROVIDERS: Family Medicine; Surgery; ADMIT Internal Medicine Nephrology; ATTEND Internal Medicine Nephrology
PROC: 06HN33Z Insertion of Infusion Device into Left Femoral Vein, Percutaneous Approach (ICD-10-PCS; principal; 2021-02-02)
PROC: B54CZZA Ultrasonography of Left Lower Extremity Veins, Guidance (ICD-10-PCS; 2021-02-02)
PROC: 5A1D70Z Performance of Urinary Filtration, Intermittent, Less than 6 Hours Per Day (ICD-10-PCS; 2021-02-03)
PROC: B51W1ZZ Fluoroscopy of Dialysis Shunt/Fistula using Low Osmolar Contrast (ICD-10-PCS; 2021-02-04)
PROC: 0JHM3XZ Insertion of Tunneled Vascular Access Device into Left Upper Leg Subcutaneous Tissue and Fascia, Percutaneous Approach (ICD-10-PCS; 2021-02-04)
PROC: 037 Upper Arteries, Dilation (ICD-10-PCS; 2021-02-05)
DX: T82.858A Stenosis of other vascular prosthetic devices, implants and grafts, initial encounter (principal); N18.6 End stage renal disease; I12.0 Hypertensive chronic kidney disease with stage 5 chronic kidney disease or end stage renal disease; I47.1 Supraventricular tachycardia; Y83.9 Surgical procedure, unspecified as the cause of abnormal reaction of the patient, or of later complication, without mention of misadventure at the time of the procedure; E87.5 Hyperkalemia; E11.65 Type 2 diabetes mellitus with hyperglycemia; E11.22 Type 2 diabetes mellitus with diabetic chronic kidney disease; Z99.2 Dependence on renal dialysis; Z86.73 Personal history of transient ischemic attack (TIA), and cerebral infarction without residual deficits; I16.0 Hypertensive urgency; D63.1 Anemia in chronic kidney disease

== ENCOUNTER 2021-02-14 10:54 | Day surgery (SDC) | payer MEDICARE ==
[~2021-02-14] VITALS: Ht 175.3 cm; Wt 101.8 kg
--- NOTE | ~2021-02-14 | HEMODYNAMI ---
PATIENT:ILEANA BALTAZAR JR MEDICAL RECORD: [id number] : 75 LOCATION:[facility] ADMISSION DATE: 02/14/21 Generatedon:116:07 Patient name: ILEANA BALTAZAR Patient #: [id number] SSN: : 1975 Date of study: 02/14/2021 Page: Of Hemodynamic Procedure Report Patient Data Patient Demographics Procedure consent was obtained First Name: ILEANA Gender: Male Last Name: GIOVANNY Suffix: [facility] Initial: Ge : 1975 Patient #: [id number] Age: 46 year(s) Race: Unknown Additional ID: [id number] Contact details [address]: [address] [place] [address] State: [place] City: [place] Zip code: [address] Past Medical History Allergies Allergen Reaction Date Comments Reported Penicillins 02/05/2021 Other allergy 02/05/2021 flu and pneumonia vaccines Penicillins 02/14/2021 Other allergy 02/14/2021 flu and pneumonia vaccines Admission Admission Data Admission Date: 02/14/2021 Admission Time: 10:54 Procedure Procedure Types Cath Procedure Peripheral Cath Diagnostic Procedure Abd/Extremity Extremities Right Upper Ext. Arteriogram Procedure Description Procedure Date Procedure Date: 02/14/2021 Procedure Start Time: 13:46 Procedure Staff Name Function Ramiro Davis MD Performing Physician Melanie Kendrick RT Honing Machine Operator Tool Lesli Gordon RN Nurse SHOAIB YO RT Scrub Skinny Kennedy Jr CONTROL ELECTRICIAN Additional personnel Garcia Carmona CONTROL ELECTRICIAN Additional personnel Procedure Data Cath Procedure Fluoroscopy Diagnostic fluoroscopy Total fluoroscopy Time: time: 28.1 min 28.1 min Diagnostic fluoroscopy Total fluoroscopy dose: dose: 2346 mGy 2346 mGy Procedure Medications Medication Administration Route Dosage Lidocaine 1% added to field 20 Heparin Flush Bag added to field 3 bags (1000units/500ml NS) Heparin Bolus I.V. 5000 units Hemodynamics Rest Pre Cath Intra NCS Post Cath Medications Time Medication Route Dose Verified Delivered Reason Notes Effecti veness by by 13:47:58 Lidocaine 1% added 20ml Ramiro Rubio to vial Susan Davis MD field MD 13:48:12 Heparin Flush added 3 Ramiro Rubio Bag to bags Susan Davis MD (1000units/500ml field SHEPPARD NS) 14:59:19 Heparin Bolus I.V. 5000 Ramiro Ballesteros units Evan Davis RN, MD Procedure Log Time Note 12:51:24 Use device set IR Diagnostic 12:52:41 SHEATH 5FR [place] (EDB778) opened to sterile field. 12:52:43 DOUBLE ENDED GUIEDWIRE DOC 145CM (R12733) opened to sterile field. 12:52:44 Micropuncture VSI 4FR kit opened to sterile field. 12:52:46 Tegaderm 4 x 4 (1626W) opened to sterile field. 12:52:49 Sterile Angiographic Pack opened to sterile field. 12:52:49 Bag Decanter (2002S) opened to sterile field. 12:52:50 ACIST Manifold (65291) opened to sterile field. 12:52:51 ACIST Hand Control (24680) opened to sterile field. 12:52:53 ACIST Syringe (91365) opened to sterile field. 12:53:06 - 13:10:19 Time tracking: Regular hours (M-F 7:00 - 5:00) 13:20:17 Plan of Care:Hemodynamics will remain stable., Cardiac rhythm will remain stable., Comfort level will be maintained., Respiratory function will remain adequate., Patient/ family verbilizes understanding of procedure., Procedure tolerated without complication., Recovers from procedure without complications.. 13:20:24 Patient received from Outpatients to IR Alert and oriented. Tansferred to table in Supine position. 13:20:26 Signed procedure consent form obtained from patient. 13:20:33 H&P Date Dictated: 02/14/2021 Emergent; H&P N/A, H&P Addendum completed by physician on day of procedure. (MUST COMPLETE FOR ALL OUTPATIENTS). 13:20:36 Pre-procedure instructions explained to patient. 13:20:36 Pre-op teaching completed and patient verbalized understanding. 13:20:39 Family in patients room. 13:20:42 Patient NPO since Midnight. 13:20:56 Patient allergic to Penicillins 13::07 Patient allergic to Other allergyflu and pneumonia vaccines 13:22:12 Is the patient allergic to Iodine/contrast media? No. 13:22:30 Patient diabetic? No. 13::35 ----Pre-sedation anethsthesia assessment.----SEE ANESTHESIA NOTES FOR MONITORING OF PATIENT DURING PROCEDURE 13:23:12 Right groin area was prepped with chlora-prep and draped in sterile fashion 13:23:20 Right Arm area was prepped with chlora-prep and draped in sterile fashion 13:23:27 - 13:23:35 5) <15 or on dialysis Very severe, or end stage kidney failure. 13:23:41 Fire Safety Assessment: A--An alcohol-based skin anteseptic being used preoperatively., C--Open oxygen or nitrous oxide is being used. 13:24:07 Sedation plan: General Anesthesia Medication:General Anesthesia 13:24:17 - 13:45:38 Physician arrived 13:45:39 --------ALL STOP TIME OUT------ 13:45:40 Final Timeout: patient, procedure, and site verified with staff and physician. All members of the team are in agreement. 13:46:04 Procedure started. 13:46:04 Full Disclosure recording started 13:46:11 Local anesthetic to right femoral vein with Lidocaine 1% by Ramiro Davis MD.INITIAL ACCESS ONLY 13:47:58 Lidocaine 1% 20ml vial added to field was administered by Ramiro Davis MD; ; Verbal order read back and verified. 13:48:12 Heparin Flush Bag (1000units/500ml NS) 3 bags added to field was administered by Ramiro Davis MD; ; Verbal order read back and verified. 13:52:42 Venous access obtained using ultrasound guidance. 13:57:07 GLIDE WIRE ANGLE 180cm (TS5375) opened to sterile field. 13:57:08 GLIDE CATHETER 5FR ANGLED 65cm (CG507) opened to sterile field. 13:57:23 TORQUE DEVICE PLASTIC .038 ( TD01) opened to sterile field. 13:59:14 ROADRUNNER .035 145 glide wire (V36750) opened to sterile field. 14:10:04 SHEATH 6FR [place] (AFT321) opened to sterile field. 14:14:09 GLIDE WIRE GOLD .018 (SW5075) opened to sterile field. 14:24:00 AMPLATZ Super Stiff 75cm wire ([id number]) opened to sterile field. 14:26:19 GLIDE CATHETER 5FR ANGLED 65cm (CG507) opened to sterile field. 14:30:18 SHEATH 6FR Destination (RSR01) opened to sterile field. 14:30:31 MCKEON 180cm wire (P68806) opened to sterile field. 14:39:19 SHEATH DESTINATION 6FR X 65CM (RSP01) opened to sterile field. 14:39:47 GLIDE CATHETER 5FR ANGLED 100cm (CG508) opened to sterile field. 14:49:02 TREASURE 12 300cm wire ([id number]) opened to sterile field. 14:52:32 MCKEON 260 wire (I66995) opened to sterile field. 14:58:58 INFLATOR BasixTOUCH (BT0703) opened to sterile field. 14:59:19 Heparin Bolus 5000 units I.V. was administered by Lesli Gordon RN; ; Verbal order read back and verified. 15:02:13 Inflate balloon Inflation number: 1 A Evercross 6 x 8 x 135 Balloon ([id number]) was prepped and advanced across the Undefined1 , then inflated . 15:06:45 Inflate balloon Inflation number: 2 A EVERCROSS 8 X 80 X 135 BALLOON ([id number]( was prepped and advanced across the Undefined1 , then inflated . 15:28:41 Inflate balloon Inflation number: 3 A Evercross 9 x 60 x 135 ([id number]) was prepped and advanced across the Undefined1 , then inflated. 15:29:07 Inflate balloon Inflation number: 4 A EVERCROSS 10 X 60 X 135 BALLOOON ([id number]) was prepped and advanced across the Undefined1 , then inflated . 15:50:03 A 12X60 ABRE VENOUS STENT PLACED LOT NUMBER-[id number] 15:51:13 Inflate balloon Inflation number: 5 A Evercross 10 x 40 x 135 Balloon ([id number]) was prepped and advanced across the Undefined1 , then inflated . 15:55:54 Procedure ended.(Physican Out) 15:56:23 Fluoroscopy time 28.10 minutes. 15:56:29 Fluoroscopy dose: 2346 mGy 15:56:29 Flurop Dose total: 2346 16:06:41 Procedure and supply charges have been captured, reviewed, submitted an d are correct. 16:06:54 Report given to Recovery Room. Intervention Summary Intervention Notes Time ActionType Lesion and Equipment Used Action# Pressure Duration Attributes 15:02:13 Inflate Undefined1 Evercross 6 x 8 1 0 00:00 balloon x 135 Balloon ([id number]) 15:06:45 Inflate Undefined1 EVERCROSS 8 X 2 0 00:00 balloon 80 X 135 BALLOON ([id number]( 15:28:41 Inflate Undefined1 Evercross 9 x 3 0 00:00 balloon 60 x 135 ([id number]) 15:29:07 Inflate Undefined1 EVERCROSS 10 X 4 0 00:00 balloon 60 X 135 BALLOOON ([id number]) 15:51:13 Inflate Undefined1 Evercross 10 x 5 0 00:00 balloon 40 x 135 Balloon ([id number]) Device Usage Item Name Manufacture Quantity Catalog Number Hospital Part Current Minimal Lot# / Charge Number Stock Stock Serial# Code SHEATH 5FR Terumo 1 [id number] 148593 767061 786668 5 [place] (WXT406) DOUBLE ENDED [facility] 1 R64612 838080 932525 1 GUIEDWIRE DOC 145CM (A68192) Micropuncture VSI VASCULAR 1 7266V 629195 953845 5 VSI 4FR kit SOLUTIONS Tegaderm 4 x 4 3M 1 1626W 785024 740062 578828 5 (1626W) Sterile Cardinal 1 [id number] 481012 910598 5 Angiographic Health Pack Bag Decanter Microtek 1 2001S 075636 30423 932586 5 () Medical Inc. ACIST Manifold Acist Medical 1 95981 223511 323412 359613 5 (62771) Systems Inc ACIST Hand Acist Medical 1 52171 933198 649152 153837 5 Control (73413) Systems Inc ACIST Syringe Acist Medical 1 25688 223618 184207 167486 20 (18692) Systems Inc GLIDE WIRE Terumo 1 QW1077 181343 257717 546679 5 ANGLE 180cm (UY0280) GLIDE CATHETER Terumo 1 CG507 522085 456305 5 5FR ANGLED 65cm (CG507) TORQUE DEVICE Woodbine 1 TD01 406120 741457 609491 5 PLASTIC .038 ( Scientific TD01) ROADRUNNER .035 Cook Medical 1 G38679 765044 137782 733390 5 145 glide wire (L26930) SHEATH 6FR Terumo 1 TNV424 419861 166965 351309 40 [place] (YLT384) GLIDE WIRE GOLD Terumo 1 PT4455 698236 932341 5 .018 (VY9806) AMPLATZ Super Woodbine 1 [id number] 596668 602943 450572 5 Stiff 75cm wire Scientific ([id number]) SHEATH 6FR Terumo 1 RSR01 819241 76524 359679 5 Destination (RSR01) MCKEON 180cm [employer] 1 H13382 147676 354576 5 wire (P26723) SHEATH Terumo 1 RSP01 399612 93692 979065 1 DESTINATION 6FR X 65CM (RSP01) GLIDE CATHETER Terumo 1 CG508 204740 64846 486712 4 5FR ANGLED 100cm (CG508) TREASURE 12 Cardiovascular 1 [id number] 340025 665010 459434 5 300cm wire systems ([id number]) MCKEON 260 wire [employer] 1 P74481 625044 176020 605769 5 (E08372) INFLATOR [facility] 1 DT5868 888238 860750 080790 5 BasixTOUCH (GV5673) Evercross 6 x 8 Medtronic 1 [id number] 576810 940404 571596 5 x 135 Balloon ([id number]) EVERCROSS 8 X Medtronic 1 [id number] 445032 970318 1 80 X 135 BALLOON ([id number]( Evercross 9 x Medtronic 1 [id number] 384510 411003 345133 5 60 x 135 ([id number]) EVERCROSS 10 X Medtronic 1 [id number] 324067 474070 1 60 X 135 BALLOOON ([id number]) Evercross 10 x Medtronic 1 [id number] 582958 401540 574467 5 40 x 135 Balloon ([id number]) Signature Audit [employer] Stage Time Signature Unsigned Intra-Procedure 02/14/2021 Melanie Kendrick 4:07:16 PM RT(R) [facility] [address] [place] [address]
[~2021-02-14 10:54] MED LIST changes: +ASPIRIN81 MG PO; +ISOSORBIDE MONO30 M1 PO; +PLAVIX75 MG PO; +ROCALTROL0.5 MCG PO; +SENSIPAR60 MG PO
[2021-02-14 11:28] LABS: BASOPHILS 1.6 % (0-2); EOSINOPHILS 3.5 % (0-7); HEMATOCRIT 29.6 % (42.0-54.0); LYMPHOCYTES 19.7 % (15-50); MCH 32.2 pg (26.0-34.0); MCHC 33.8 g/dL (31.0-37.0); MCV 95.2 fL (80.0-100.0); MEAN PLATELET VOLUME 7.4 fL (7.4-10.4); MONOCYTES 10.5 % (2-11); NEUTROPHILS 64.7 % (40-80); RBC 3.11 10x6/uL (4.20-6.10); RDW 14.3 % (11.5-14.5); WBC 4.4 10x3/uL (4.8-10.8)
[2021-02-14 11:36] LABS: PLATELET COUNT 193 10x3/uL (130-400)
[2021-02-14 11:56] LABS: CALCIUM 10.6 mg/dL (8.5-10.1); CARBON DIOXIDE 28.1 mmol/L (21.0-32.0); CREATININE - SERUM 5.8 mg/dL (0.6-1.3); POTASSIUM - SERUM 4.1 mmol/L (3.5-5.1)
[2021-02-14 11:57] LABS: APTT 33.1 SECONDS (22.8-39.4); INR 1.15 (0.85-1.17); PROTIME 13.6 SECONDS (11.6-15.0)
[2021-02-14 12:29] VITALS: BP 164/63; Ht 175.3 cm; Wt 101.8 kg
--- NOTE | 2021-02-14 17:30 | NUR ---
1700 - DRESSING TO RIGHT UPPER EXTREMITY REINFORCED USING 4 INCH GAUZE AND MICROFOAM TAPE, PRESSURE APPLIED DUE TO SEEPAGE OF BLOOD.
--- NOTE | 2021-02-14 19:06 | NUR ---
1800 - DR. ROBERTS HERE. REVIEWED DISCHARGE INSTRUCTIONS WITH BOTH PATIENT AND HIS SPOUSE. I ALERTED HIM TO THE SEEPAGE OF BLOOD FROM THE RIGHT UPPER ARM AREA AND THAT I REINFORCED THE DRESSING. NO NEW ORDERS.
--- NOTE | 2021-02-14 19:07 | NUR ---
1814 - DRESSING WITH ADDITIONAL GAUZE SATURATED. REINFORCED AGAIN WITH PRESSURE DRESSING USING CARRI WRAP. CLOTS NOTED UNDER CLEAR DRESSING SO THIS WAS LEFT IN PLACE WITHOUT DISTURBING THE AREA. IV D/C'D WITH TIP INTACT. PATIENT UP TO DRESS FOR DISCHARGE.
--- NOTE | 2021-02-14 19:09 | NUR ---
1850 - DISCHARGED TO PRIVATE CAR VIA WHEELCHAIR. DISCHARGE INSTRUCTIONS COMPLETED PRIOR TO DISCHARGE.
== END 2021-02-14 18:50 | disposition home or self-care (01) ==
LOC: D.RAD 10:54
PROVIDERS: General Practice; ATTEND Internal Medicine Nephrology
DX: N18.6 End stage renal disease (principal); Z99.2 Dependence on renal dialysis; I82.290 Acute embolism and thrombosis of other thoracic veins; D64.9 Anemia, unspecified; E87.5 Hyperkalemia; E11.65 Type 2 diabetes mellitus with hyperglycemia; I16.0 Hypertensive urgency